=== PATIENT | female | born 1990 | race Caucasian/White ===

== ENCOUNTER 2022-04-12 15:20 | Emergency (ER) | payer SELFPAY | END 2022-04-12 18:00 | disposition home or self-care (01) | LOC: JD.ED 15:20 | DX: R41.3 Other amnesia (principal); F17.210 Nicotine dependence, cigarettes, uncomplicated; Z20.822 Contact with and (suspected) exposure to COVID-19 | CPT/HCPCS: 36415; 70450; 70450-26; 80053; 80307; 82607; 83735; 84207; 85025; 99283; 99285; U0002 ==

== ENCOUNTER 2023-05-01 06:40 | Inpatient (IN) | payer MEDICAID ==
[2023-05-01] MEDS ORDERED: Sodium Chloride 0.9% 10 ML Syringe FLUSH PRN (06:55)
[2023-05-01] MEDS ORDERED: Nalbuphine HCl 10 MG/ 1ML Amp IVPUSH PRN (06:55)
[2023-05-01] MEDS ORDERED: Lidocaine 1% 50 ML MDV INJECT PRN (06:55)
[2023-05-01] MEDS ORDERED: Ondansetron 4 MG/2 ML SDV IVPUSH PRN (06:55)
[2023-05-01] MEDS ORDERED: Lactated Ringers 1,000 ML IV SCH (07:00)
[2023-05-01] MEDS ORDERED: Oxytocin/Lactated Ringers 10 UNIT/1,000 ML BAG IV SCH ×2 (07:00)
[2023-05-01 07:25] LABS: BASOPHILS ABSOLUTE AUTO 0.1 K/mm3 (0.0-0.2); BASOPHILS PERCENT AUTO 0.6 % (0.0-1.0); EOSINOPHILS ABSOLUTE AUTO 0.1 K/mm3 (0.0-0.4); EOSINOPHILS PERCENT AUTO 1.3 % (0.0-6.0); HEMATOCRIT 36.3 % (37.0-47.0); HEMOGLOBIN 12.7 gm/dl (12.0-16.0); IMMATURE GRAN ABSOLUTE AUTO 0.05 K/mm3 (0.00-0.05); IMMATURE GRAN PERCENT AUTO 0.6 % (0.0-0.4); LYMPHOCYTES ABSOLUTE AUTO 1.5 K/mm3 (1.0-4.8); MEAN CORPUSCULAR HEMOGLOBIN 31.8 pg (28.0-32.0); MEAN CORPUSCULAR VOLUME 90.8 fl (83.0-99.0); MEAN PLATELET VOLUME 11.3 fl (9.4-12.3); MONOCYTES ABSOLUTE AUTO 0.7 K/mm3 (0.0-0.8); MONOCYTES PERCENT AUTO 7.9 % (0.0-8.0); NEUTROPHILS ABSOLUTE AUTO 6.2 K/mm3 (1.8-7.7); NEUTROPHILS PERCENT AUTO 72.6 % (41.0-71.0); PLATELET COUNT,PLT 172 K/mm3 (150-400); WHITE BLOOD CELL COUNT,WBC 8.51 K/mm3 (3.9-11.3)
[2023-05-01] MEDS ORDERED: Penicillin G Potassium 5 MILLUNITS in Sodium Chloride 0.9% 100 ML IV ONE (07:30)
[2023-05-01] MEDS ORDERED: Sodium Chloride 0.9% 10 ML Syringe FLUSH SCH (09:00)
[2023-05-01] MEDS: Penicillin G Potassium 2.5 MILLUNITS in Sodium Chloride 0.9% 100 ML IV SCH (11:30)
[2023-05-01] MEDS ORDERED: Bupivacaine/fentaNYL/NS 100 ML Bag EPIDUR PRN (14:49)
[2023-05-01] MEDS ORDERED: diphenhydrAMINE 50 MG/ML SDV IVPUSH PRN (14:49)
[2023-05-01] MEDS ORDERED: ePHEDrine 50 MG/ML SDV IVPUSH PRN (14:49)
[2023-05-01] MEDS ORDERED: fentaNYL 100 MCG/2 ML SDV EPIDUR PRN (14:49)
[2023-05-01] MEDS ORDERED: Benzocaine/Menthol 20%-0.5% Spray 78 GM Cannister TOP PRN (17:50)
[2023-05-01] MEDS ORDERED: Acetaminophen 325 MG Tab PO PRN (17:50)
[2023-05-01] MEDS ORDERED: Witch Hazel Medicated Pads 40/Jar TOP PRN (17:50)
[2023-05-01] MEDS ORDERED: Ibuprofen 600 MG Tab PO PRN (17:50)
[2023-05-01] MEDS ORDERED: Docusate Sodium 100 MG Cap PO PRN (17:50)
[2023-05-02] MEDS ORDERED: Citalopram 20 MG Tab PO SCH (09:00)
[2023-05-02] MEDS: Penicillin G Potassium 2.5 MILLUNITS in Sodium Chloride 0.9% 100 ML IV SCH (09:41)
== END 2023-05-02 16:15 | disposition home or self-care (01) | DRG 807 ==
LOC: JD.OB 06:40 → OBSVTOIN 15:21 → JD.OB 16:12
PROVIDERS: ADMIT Obstetrics & Gynecology; ATTEND Obstetrics & Gynecology
PROC: 10E0XZZ Delivery of Products of Conception, External Approach (ICD-10-PCS; principal; 2023-05-01)
PROC: 10907ZC Drainage of Amniotic Fluid, Therapeutic from Products of Conception, Via Natural or Artificial Opening (ICD-10-PCS; 2023-05-01)
PROC: 3E033VJ Introduction of Other Hormone into Peripheral Vein, Percutaneous Approach (ICD-10-PCS; 2023-05-01)
DX: O99.824 Streptococcus B carrier state complicating childbirth (principal); Z37.0 Single live birth; O99.344 Other mental disorders complicating childbirth; F32.A Depression, unspecified; F41.9 Anxiety disorder, unspecified; Z3A.39 39 weeks gestation of pregnancy; Z88.8 Allergy status to other drugs, medicaments and biological substances; Z98.890 Other specified postprocedural states
CPT/HCPCS: 36415; 59025; 59409; 85025; 86592; 86850; 86900; 86901; A9270-GY; J2300; J2540; J2590; J3490; J7120